=== PATIENT | male | born 1980 | race Caucasian/White ===

== ENCOUNTER 2016-05-31 20:35 | Emergency (ER) ==
[2016-05-31] MEDS ORDERED: ASPIRIN PO STA (20:59)
[2016-05-31 21:11] LABS: MANUAL DIFF NEEDED? NO
--- NOTE | 2016-05-31 21:33 | PROVIDER DOCUMENTATION ---
HPI-Chest Pain <Noah Russell - Last Filed: 05/31/16 22:27> - General Source: patient - History of Present Illness-CP Location: reports: substernal Chest Pain Radiation: reports: shoulders (left) Quality of Pain: reports: aching Severity in ED: mild Onset/Duration: 1-3 hours ago Timing: intermittent Context/Activities at Onset: reports: none Modifying Factors: worse with: breathing, coughing Associated Symptoms: reports: denies symptoms Nitro Today/Relief: no nitro taken today Aspirin Treatment Today: 325 mg x 1, provided by ED Similar Symptoms Previously?: No Recently Seen Here or By Another Healthcare Provider: No <Divya Kinney - Last Filed: 05/31/16 22:43> - General Chief Complaint: Epigastric Pain Stated Complaint: CHEST PAIN Time Seen by Provider: 05/31/16 21:15 Allergies/Adverse Reactions: Patient Allergies Allergy/AdvReac Type Severity Reaction Status Date / Time No Known Allergies Allergy Verified 05/31/16 20:59 Home Medications: Home Medication List Medication Instructions Recorded Confirmed Last Taken Type Acetaminophen [Tylenol Extra 1,000 mg PO ONCE 05/31/16 05/31/16 05/31/16 12:00 History Strength] Hydrocodone/APAP 5 mg/325 mg 1 tab PO Q6H PRN PRN #10 tablet 05/31/16 Unknown Rx [Rutherford-5] Lansoprazole [Prevacid] 30 mg PO DAILY #21 capsule. 05/31/16 Unknown Rx - History of Present Illness-CP Nature of Presenting Problem: 36 year old M presents to the ED with a cc of chest pain with an onset of 2030. Pt states that pain is worse with coughing and deep breaths. PT states that pain is intermittent. Denies SOB, nausea, vomiting, or diarrhea. (Divya Kinney) Review of Systems - Adult - REVIEW OF SYSTEMS - ADULT Constitutional: denies: chills, fever Eyes: reports: no symptoms reported Ears, Nose, Mouth & Throat: denies: ear pain, throat pain Cardiovascular: reports: chest pain. denies: palpitations Respiratory: reports: cough. denies: shortness of breath Gastrointestinal: denies: abdominal pain, diarrhea, nausea, vomiting Genitourinary: denies: dysuria, hematuria Musculoskeletal: denies: back pain, muscle weakness Integumentary: denies: rash, skin sores/ulcer, skin thickening Neurological: reports: no symptoms reported Psychiatric: reports: no symptoms reported Endocrine: reports: no symptoms reported Hematologic/Lymphatic: reports: no symptoms reported Allergic/Immunologic: reports: no symptoms reported All Other Systems: Reviewed and Negative <Divya Kinney - Last Filed: 05/31/16 22:43> Past History - Adult - PAST MEDICAL HISTORY-ADULT Review of Records: reports: Nursing Assessment Review, Medications Reviewed Major Childhood Illnesses: reports: denies history Cardiovascular: reports: denies history Respiratory: reports: denies history Gastrointestinal: reports: GERD, ulcer Obstetrical/Gynecological: reports: denies history Genitourinary: reports: denies history Musculoskeletal: reports: denies history Neurological: reports: denies history Endocrine/Immune: reports: denies history Other Conditions: reports: denies history - PRIOR SURGERIES/PROCEDURES Surgical/Procedure History: reports: none - IMMUNIZATION STATUS Childhood Immunizations: See Nurse Assessment Flu Vaccine: See Nurse Assessment - FAMILY HISTORY Family History: CAD under 55yo - SOCIAL HISTORY Smoking: cigarettes, less than 1 pack/day Provider spent 3-5 mins advising pt. on dangers of tobacco.: Discussed manners to quit use, and f/u contacts for add'l counseling. Substance Use: none/never Alcohol Use Frequency: twice a week Number of drinks per typical drinking period:: 11-15 drinks <Divya Kinney - Last Filed: 05/31/16 22:43> Physical Exam-General - PHYSICAL EXAM-ADULT Initial Vital Signs Reviewed: Yes - CONSTITUTIONAL General Appearance: appears well, alert, no apparent distress - EYES Eyes: PERRL/EOMI, pink conjunctivae - HEAD, EARS, NOSE, MOUTH & THROAT HENMT: normocephalic/atraumatic, moist mucous membranes - NECK Neck: supple - RESPIRATORY Respiratory: chest non-tender, lungs clear, normal breath sounds - CARDIOVASCULAR Cardiovascular: normal peripheral pulses, regular rate, rhythm, no edema - GASTROINTESTINAL (ABDOMEN) Abdominal Exam: normal bowel sounds, non tender, soft - MUSCULOSKELETAL Back Exam: normal inspection, no vertebral tenderness Extremity: normal inspection - SKIN Integumentary: normal color, normal turgor, warm/dry - PSYCHIATRIC Psych/Mental Status: normal mood/affect, normal thought content, normal thought process, oriented x 3 <Divya Kinney - Last Filed: 05/31/16 22:43> Progress <Noah Russell - Last Filed: 05/31/16 22:27> - EKG 1 Time of EKG reading by physician:: 20:44 EKG Read and Signed by:: Noah Russell EKG Interpretation (*Must complete 3 of following elements*): Abnormal Rate: 75 Rhythm: NSR QRS: RBB (incomplete) - XRAY 1 XRAY Study: Chest Impression: Normal XRAY Interpretation: negative: Dr. Russell-ER MD <Divya Kinney - Last Filed: 05/31/16 22:43> - PLAN OF CARE/RESULTS Progress/Plan/Lab Results: plan of care: imaging, labs, medications, EKG Orders Category Date Time Status Cardiac Monitoring DIRECTED Care 05/31/16 21:00 Active Oxygen Therapy- ED Nursing DIRECTED Care 05/31/16 21:00 Active Saline Loc NOW Care 05/31/16 21:00 Active CHEST-2 VIEWS [RAD] Stat Exams 05/31/16 21:00 Taken CBC WITH ELECTRONIC DIFF [HEME] Stat Lab 05/31/16 20:55 Completed CK PROFILE [SP CHEM] Stat Lab 05/31/16 20:55 Completed COMPREHENSIVE METABOLIC PANEL [CHEM] Stat Lab 05/31/16 20:55 Completed D-DIMER PL [COAG] Stat Lab 05/31/16 20:55 Results LIPASE [CHEM] Stat Lab 05/31/16 20:55 Completed MAGNESIUM [CHEM] Stat Lab 05/31/16 20:55 Completed PRO B-NATRIURETIC PEPTIDE Stat Lab 05/31/16 20:55 Completed [address]IME WITH INR PL [COAG] Stat Lab 05/31/16 20:[address] [COAG] Stat Lab 05/31/16 20:55 Results TROPONIN T Stat Lab 05/31/16 20:55 Completed Aspirin Med 05/31/16 20:59 Discontinued 325 mg PO STAT STA Dexamethasone [Decadron] Med 05/31/16 22:13 Discontinued 4 mg IV NOW ONE EKG [EKG] Stat Ther 05/31/16 20:43 Ordered Laboratory Tests 05/31/16 05/31/16 05/31/16 20:55 20:55 20:55 WBC RBC Hgb Hct MCV MCH MCHC RDW Std Deviation Plt Count MPV Immature Gran % (Auto) Neut % (Auto) Lymph % (Auto) [place] % (Auto) Eos % (Auto) Baso % (Auto) Immature Gran # (Auto) Neut # (Auto) Lymph # (Auto) [place] # (Auto) Eos # (Auto) Baso # (Auto) PT INR APTT (Factor Assay) Sodium 136 Potassium 4.0 Chloride 99 Carbon Dioxide 24 L Anion Gap 13 BUN 19 Creatinine 0.8 BUN/Creatinine Ratio 24 Glucose 115 H Calculated Osmolality 275 Calcium 9.5 Magnesium 2.0 Total Bilirubin 0.20 AST 30 ALT 38 Alkaline Phosphatase 98 Creatine Kinase 168 Troponin T < 0.010 Itw-V-Ozxjqamooqo Pept 5 Total Protein 7.4 Albumin 4.3 Globulin 3.0 Albumin/Globulin Ratio 1.0 Lipase 05/31/16 05/31/16 05/31/16 20:55 20:55 20:55 WBC 10.74 RBC 5.19 Hgb 16.0 Hct 44.7 MCV 86.1 MCH 30.8 MCHC 35.8 RDW Std Deviation 12.4 Plt Count 320 MPV 10.1 Immature Gran % (Auto) 0.3 Neut % (Auto) 53.7 Lymph % (Auto) 31.0 [place] % (Auto) 10.4 H Eos % (Auto) 4.2 Baso % (Auto) 0.4 Immature Gran # (Auto) 0.03 Neut # (Auto) 5.77 Lymph # (Auto) 3.33 [place] # (Auto) 1.12 H Eos # (Auto) 0.45 Baso # (Auto) 0.04 PT 13.1 INR 0.96 APTT (Factor Assay) 37.1 Sodium Potassium Chloride Carbon Dioxide Anion Gap BUN Creatinine BUN/Creatinine Ratio Glucose Calculated Osmolality Calcium Magnesium Total Bilirubin AST ALT Alkaline Phosphatase Creatine Kinase Troponin T Svz-I-Rbonhammnac Pept Total Protein Albumin Globulin Albumin/Globulin Ratio Lipase 35 Vital Signs - 24 hr 05/31/16 05/31/16 05/31/16 20:39 21:04 21:32 Temperature 98 F Pulse Rate 81 75 75 Respiratory 18 22 20 Rate Blood Pressure 166/85 130/87 129/83 O2 Sat by Pulse 97 95 97 Oximetry 05/31/16 22:30 Temperature Pulse Rate 87 Respiratory 17 Rate Blood Pressure 132/68 O2 Sat by Pulse 95 Oximetry Pt given results and will be d/c home w/ rx to follow up with PCP. Pt verbally understood instructions. PT remained clinically stable throughout the course of the ED stay and will return if symptoms worsen. (Divya Kinney) Departure - Departure Time of Disposition Order: 22:15 Certified Medical Emergency: Emergent <Noah Russell - Last Filed: 05/31/16 22:27> <Divya Kinney - Last Filed: 05/31/16 22:43> - Departure DIAGNOSIS: Pleuritic chest pain, Epigastric abdominal pain Disposition: HOME 01 Condition: Stable Additional Instructions: stop smoking, followup with your primary care provider this week for further evaluation Prescriptions: Hydrocodone/APAP 5 mg/325 mg [Rutherford-5] 1 tab PO Q6H PRN PRN #10 tablet PRN Reason: Pain Lansoprazole [Prevacid] 30 mg PO DAILY #21 capsule.dr Referrals: Gorge Talamantes MD [STAFF PHYSICIAN] - Forms: Return to School/Parent Work Instructions: Acetaminophen; Hydrocodone tablets or capsules, Abdominal Pain, Adult, [id number], Nonspecific Chest Pain, Ajtu-xk-Pmuc, Lansoprazole capsules Attestation - Scribe Verification/Attestation Scribe:: Divya Kinney Acting as Scribe for:: Noah Russell Scribe documention review:: This chart was documented by a scribe and accurately reflects the service the provider performed and the decisions made by the provider. <Divya Kinney - Last Filed: 05/31/16 22:43> Physician Attestation - Physician Attestation I, the provider, attest to the following statement:: Noah Russell Physician documentation Attestation:: This documentation recorded by the scribe accurately reflects the service I personally performed and the decisions made by me. <Divya Kinney - Last Filed: 05/31/16 22:43>
[2016-05-31 21:36] LABS: BASO% 0.4 % (0.0-0.8); EOS# 0.45 X1000 (0.0-0.7); EOS% 4.2 % (0.0-10.0); HEMATOCRIT 44.7 % (42.0-52.0); IMM GRAN# 0.03 X1000 (0.0-0.04); IMM GRAN% 0.3 % (0.0-0.5); LYMPH# 3.33 X1000 (1.2-3.4); MCH 30.8 PG (27-31); MCHC 35.8 g/dL (33-37); MCV 86.1 FL (81-99); MONO# 1.12 X1000 (0.11-0.59); MONO% 10.4 % (1.7-9.3); MPV 10.1 FL (7.4-10.4); NEUT% 53.7 % (42.2-75.2); PLT 320 X1000 (130-400); RBC 5.19 XMIL (4.7-6.1)
[2016-05-31 22:06] LABS: AGAP 13; BUN 19 mg/dL (8-22); CHLORIDE 99 mmol/L (98-107); COSMO 275; SODIUM 136 mmol/L (136-145); TCO2 24 mmol/L (25-35)
[2016-05-31 22:07] LABS: ALBUMIN 4.3 g/dL (3.5-5.0); ALKALINE PHOSPHATASE 98 U/L (32-122); CALCIUM 9.5 mg/dL (8.8-10.2); TOTAL PROTEIN 7.4 g/dL (6.3-8.3)
[2016-05-31 22:08] LABS: GOT 30 U/L (10-34); GPT 38 U/L (10-44)
[2016-05-31] MEDS ORDERED: DECADRON IV ONE (22:13)
[2016-05-31 22:26] LABS: CK PROFILE 168 U/L (24-204)
[2016-05-31 22:31] VITALS: BP 132/68
[2016-05-31 22:38] LABS: INR 0.96 (0.86-1.15); PROTIME 13.1 Seconds (12.1-15.5); PTT PL 37.1 Seconds (22.6-43.9)
--- NOTE | 2016-06-01 05:07 | EKG Report ---
Test Performed on : 05/31/2016 8:44:13 PM Test Reason : chest/epigastric discomfort Blood Pressure : / mmHG Vent. Rate : 075 BPM Atrial Rate : 075 BPM P-R Int : 142 ms QRS Dur : 104 ms QT Int : 370 ms P-R-T Axes : 048 063 049 degrees QTc Int : 413 ms Normal sinus rhythm. Incomplete right bundle branch block Borderline ECG When compared with ECG of 25-SEP-2014 10:43, Incomplete right bundle branch block is now present Unconfirmed Result
--- NOTE | 2016-06-01 08:51 | Diag Imaging Result Document ---
PROCEDURE NAME: CHEST-2 VIEWS - 05/31/2016 FRONTAL AND LATERAL CHEST, TWO VIEWS: COMPARISON: No comparison films. FINDINGS: The lungs are well expanded. The heart is not enlarged. The vessels are not distended. No pneumonia. No pleural effusions. No free air beneath the diaphragm. IMPRESSION: No acute abnormality.
== END 2016-05-31 23:06 | disposition home or self-care (01) ==
LOC: P.ED 20:35
DX: R07.81 Pleurodynia (principal); R10.13 Epigastric pain; R05 Cough; R94.31 Abnormal electrocardiogram [ECG] [EKG]; F17.210 Nicotine dependence, cigarettes, uncomplicated; Z71.6 Tobacco abuse counseling; Z79.82 Long term (current) use of aspirin; Z82.49 Family history of ischemic heart disease and other diseases of the circulatory system
CPT/HCPCS: 71020; 80053; 82550; 83690; 83735; 83880; 84484; 85025; 85379; 85610; 85730; 93005; 96374; J1100

== ENCOUNTER 2019-07-17 19:32 | Observation (INO) ==
[2019-07-17] MEDS ORDERED: ASPIRIN EC ONE ×2 (19:34→19:36)
[2019-07-17] MEDS ORDERED: G.I. COCKTAIL PO ONE (19:43)
[2019-07-17] MEDS ORDERED: SODIUM CHLORIDE 0.9% INJ ONE (19:43)
[2019-07-17] MEDS ORDERED: PEPCID IV ONE (19:43)
[2019-07-17] MEDS ORDERED: ASPIRIN PO ONE (19:43)
[2019-07-17 20:03] LABS: BASO# 0.02 X1000 (0.0-0.2); BASO% 0.2 % (0.0-0.8); EOS# 0.39 X1000 (0.0-0.7); EOS% 3.2 % (0.0-10.0); HEMATOCRIT 51.5 % (42.0-52.0); HEMOGLOBIN 17.5 g/dL (14.0-18.0); IMM GRAN# 0.04 X1000 (0.0-0.04); IMM GRAN% 0.3 % (0.0-0.5); LYMPH% 25.9 % (20.5-51.1); MCH 30.8 PG (27-31); MCV 90.5 FL (81-99); MONO# 0.92 X1000 (0.11-0.59); MONO% 7.4 % (1.7-9.3); MPV 10.4 FL (7.4-10.4); NEUT# 7.78 X1000 (1.4-6.5); PLT 308 X1000 (130-400); RBC 5.69 XMIL (4.7-6.1); RDW 13.4 % (11.5-14.5); WBC 12.35 X1000 (4.8-10.8)
[2019-07-17 20:07] LABS: AGAP 15; BUN 10 mg/dL (8-22); CHLORIDE 98 mmol/L (98-107); COSMO 273; CREATININE 0.8 mg/dL (0.7-1.2); ESTIMATED GFR > 60; GLUCOSE 97 mg/dL (70-104); POTASSIUM 3.9 mmol/L (3.5-5.1); SODIUM 137 mmol/L (136-145); TCO2 25 mmol/L (25-35)
[2019-07-17 21:07] LABS: URINE SOURCE CLEAN CATCH
[2019-07-17 21:08] LABS: BILIRUBIN URINE NEGATIVE (NEGATIVE); BLOOD URINE NEGATIVE (NEGATIVE); COLOR YELLOW; GLUCOSE URINE NEGATIVE (NEGATIVE); KETONE URINE NEGATIVE (NEGATIVE); LEUKOCYTES URINE TRACE (NEGATIVE); NITRITE URINE NEGATIVE (NEGATIVE); PROTEIN URINE TRACE mg/dL (NEGATIVE); SP GRAVITY URINE 1.023; TURBIDITY URINE HAZY (CLEAR); UROBILINOGEN URINE NORMAL (NORMAL)
--- NOTE | 2019-07-17 21:18 | Diag Imaging Result Doc PS360 ---
CHEST-PORTABLE - 07/17/2019 INDICATION: CP COMPARISON: 10/02/2018 FINDINGS: The lungs are normally expanded and clear. Heart size and mediastinal contours are normal. No pneumothorax or pleural effusion. IMPRESSION: Negative exam. Electronically signed by Chico De La Fuente 07/17/2019 9:15 PM
[2019-07-17 21:20] LABS: UR AMPHETAMINES QUAL NONE DETECTED (NONE DETECT); UR BARBITUATES QUAL NONE DETECTED (NONE DETECT); UR BENZODIAZEPIN QUAL NONE DETECTED (NONE DETECT); UR CANNABINOIDS QUAL NONE DETECTED (NONE DETECT); UR COCAINE QUAL NONE DETECTED (NONE DETECT); UR METHADONE QUAL NONE DETECTED (NONE DETECT); UR METHAMPHETAMINE QUAL NONE DETECTED (NONE DETECT); UR OPIATES QUAL NONE DETECTED (NONE DETECT); UR OXYCODONE QUAL PRESUMPTIVE POSITIVE (NONE DETECT); UR PCP QUAL NONE DETECTED (NONE DETECT); UR PROPOXYPHENE QUAL NONE DETECTED (NONE DETECT); UR TCA QUAL NONE DETECTED (NONE DETECT)
[2019-07-17 21:40] LABS: UR EPITHELIAL CELLS <10 /HPF (<10); URINE BACTERIA NEGATIVE /HPF; URINE RBC <10 /HPF (<10); URINE WBC <10 /HPF (<10)
[2019-07-17 21:41] LABS: URINE CASTS NONE SEEN; URINE CRYSTALS NONE SEEN; URINE SMALL ROUND CELLS NONE SEEN; URINE YEAST NONE SEEN
[2019-07-17] MEDS ORDERED: TYLENOL PO PRN ×2 (21:47→23:22)
[2019-07-17] MEDS ORDERED: ZOFRAN IV PRN (21:47)
--- NOTE | 2019-07-17 21:57 | PROVIDER DOCUMENTATION ---
This chart was entered by Nereida Jean Scribe, acting as scribe for Jason Fernández MD. HPI-Chest Pain - General Chief Complaint: Chest Pain Stated Complaint: CHEST PAIN Time Seen by Provider: 07/17/19 19:38 Source: patient Allergies/Adverse Reactions: Patient Allergies Allergy/AdvReac Type Severity Reaction Status Date / Time No Known Allergies Allergy Verified 07/17/19 19:47 Home Medications: Home Medication List Medication Instructions Recorded Confirmed Last Taken Type NK [No Home Medications] 07/17/19 07/17/19 Unknown History - History of Present Illness-CP Nature of Presenting Problem: pt is a 39 yr old male presenting with 2 day complaint of central chest pain, pain 7/10 and radiates to left chest. pt denies any injury, worse with exertion. no other complaints Location: reports: central Chest Pain Radiation: reports: other (left chest) Quality of Pain: reports: aching Severity in ED: moderate (7/10) Onset/Duration: 2 days ago Timing: still present Context/Activities at Onset: reports: light activity Modifying Factors: improves with: exercise (worsens pain) Associated Symptoms: denies: diaphoresis, fever/chills, nausea, shortness of breath, vomiting Nitro Today/Relief: no nitro taken today Aspirin Treatment Today: 325 mg x 1, provided by ED Prior Chest Pain/Cardiac Workup: reports: no prior chest pain, no prior cardiac workup Similar Symptoms Previously?: No Recently Seen Here or By Another Healthcare Provider: No Review of Systems - Adult - REVIEW OF SYSTEMS - ADULT Constitutional: denies: chills, fever Eyes: reports: no symptoms reported Ears, Nose, Mouth & Throat: reports: no symptoms reported Cardiovascular: reports: chest pain. denies: palpitations, syncope Respiratory: denies: cough, shortness of breath, wheezing Gastrointestinal: denies: abdominal pain, diarrhea, nausea, vomiting Genitourinary: reports: no symptoms reported Musculoskeletal: denies: back pain, neck pain Integumentary: reports: no symptoms reported Neurological: denies: dizziness/vertigo, headache/migraines, syncope Psychiatric: reports: no symptoms reported Endocrine: reports: no symptoms reported Hematologic/Lymphatic: reports: no symptoms reported Allergic/Immunologic: reports: no symptoms reported All Other Systems: Reviewed and Negative Past History - Adult - PAST MEDICAL HISTORY-ADULT Review of Records: reports: Old Records Reviewed, Nursing Assessment Review, Medications Reviewed, Social history reviewed & non-contributory. Major Childhood Illnesses: reports: denies history Cardiovascular: reports: denies history Respiratory: reports: denies history Gastrointestinal: reports: GERD, ulcer Obstetrical/Gynecological: reports: denies history Genitourinary: reports: denies history Musculoskeletal: reports: orthopedic injury Neurological: reports: denies history Endocrine/Immune: reports: denies history Other Conditions: reports: denies history - PRIOR SURGERIES/PROCEDURES Surgical/Procedure History: reports: reviewed, not pertinent, orthopedic (extremity) (R leg) - IMMUNIZATION STATUS Childhood Immunizations: See Nurse Assessment Flu Vaccine: See Nurse Assessment - FAMILY HISTORY Family History: reviewed, not pertinent, CAD under 55yo - SOCIAL HISTORY Smoking: cigarettes Provider spent 3-5 mins advising pt. on dangers of tobacco.: Discussed manners to quit use, and f/u contacts for add'l counseling. Substance Use: denies Living Situation: family Physical Exam-General - PHYSICAL EXAM-ADULT Initial Vital Signs Reviewed: Yes - CONSTITUTIONAL General Appearance: alert, no apparent distress - EYES Eyes: PERRL/EOMI - HEAD, EARS, NOSE, MOUTH & THROAT HENMT: normocephalic/atraumatic, moist mucous membranes - NECK Neck: non-tender, full range of motion, supple, normal inspection - RESPIRATORY Respiratory: lungs clear, normal breath sounds - CARDIOVASCULAR Cardiovascular: normal peripheral pulses, regular rate, rhythm - GASTROINTESTINAL (ABDOMEN) Abdominal Exam: non tender, soft - LYMPHATIC Lymphatic: no adenopathy - MUSCULOSKELETAL Back Exam: normal inspection Extremity: normal range of motion, non-tender, normal gait, normal inspection - SKIN Integumentary: normal color, normal turgor, warm/dry - NEUROLOGIC Neurologic: grossly normal, no motor/sensory deficits - PSYCHIATRIC Psych/Mental Status: normal mood/affect - HEART Score HEART Score: History: Moderately Suspicious HEART Score: ECG: Non-Specific Repolarization Disturbance/LBBB/PM HEART Score: Age: < or = 45 Years HEART Score: Risk Factors for Atherosclerotic Disease: No Risk Factors Known HEART Score: Troponin: < or = Normal Limit Total HEART Score:: 2 Progress - PLAN OF CARE/RESULTS Progress/Plan/Lab Results: Vital Signs - 8 hr 07/17/19 19:35 07/17/19 21:00 Temperature 98.2 F Pulse Rate 67 70 Respiratory Rate 18 20 Blood Pressure 140/80 130/72 O2 Sat by Pulse Oximetry 97 95 Laboratory Results - last 24 hr 07/17/19 07/17/19 07/17/19 19:42 19:42 19:42 WBC 12.35 H RBC 5.69 Hgb 17.5 Hct 51.5 MCV 90.5 MCH 30.8 MCHC 34.0 RDW Std Deviation 13.4 Plt Count 308 MPV 10.4 Immature Gran % (Auto) 0.3 Neut % (Auto) 63.0 Lymph % (Auto) 25.9 [place] % (Auto) 7.4 Eos % (Auto) 3.2 Baso % (Auto) 0.2 Immature Gran # (Auto) 0.04 Neut # (Auto) 7.78 H Lymph # (Auto) 3.20 [place] # (Auto) 0.92 H Eos # (Auto) 0.39 Baso # (Auto) 0.02 Sodium 137 Potassium 3.9 Chloride 98 Carbon Dioxide 25 Anion Gap 15 BUN 10 Creatinine 0.8 Estimated GFR/1.73 m2 > 60 BUN/Creatinine Ratio 13 Glucose 97 Calculated Osmolality 273 Calcium 10.0 Troponin T High Sens 8 Urine Source Urine Color Urine Turbidity Urine pH Ur Specific [place] Urine Protein Ur Glucose (Stick) Ur Ketones (Stick) Urine Blood Urine Nitrite Urine Bilirubin Urobilinogen Dipstick Urine Leukocytes Urine WBC (Auto) Urine RBC (Auto) U Epithel Cells (Auto) Urine Bacteria (Auto) Urine Opiates Screen Ur Oxycodone Screen Urine Methadone Screen U Propoxyphene Qual Ur Barbituates Screen Ur Tricyclics Screen Ur Phencyclidine Scrn Ur Amphetamines Screen U Methamphetamines Scrn U Benzodiazepines Scrn Urine Cocaine Screen U Cannabinoids Screen 07/17/19 07/17/19 20:21 20:21 WBC RBC Hgb Hct MCV MCH MCHC RDW Std Deviation Plt Count MPV Immature Gran % (Auto) Neut % (Auto) Lymph % (Auto) [place] % (Auto) Eos % (Auto) Baso % (Auto) Immature Gran # (Auto) Neut # (Auto) Lymph # (Auto) [place] # (Auto) Eos # (Auto) Baso # (Auto) Sodium Potassium Chloride Carbon Dioxide Anion Gap BUN Creatinine Estimated GFR/1.73 m2 BUN/Creatinine Ratio Glucose Calculated Osmolality Calcium Troponin T High Sens Urine Source CLEAN CATCH Urine Color YELLOW Urine Turbidity HAZY Urine pH 6.0 Ur Specific [place] 1.023 Urine Protein TRACE A Ur Glucose (Stick) NEGATIVE Ur Ketones (Stick) NEGATIVE Urine Blood NEGATIVE Urine Nitrite NEGATIVE Urine Bilirubin NEGATIVE Urobilinogen Dipstick NORMAL Urine Leukocytes TRACE A Urine WBC (Auto) <10 Urine RBC (Auto) <10 U Epithel Cells (Auto) <10 Urine Bacteria (Auto) NEGATIVE Urine Opiates Screen NONE DETECTED Ur Oxycodone Screen PRESUMPTIVE POSITIVE A Urine Methadone Screen NONE DETECTED U Propoxyphene Qual NONE DETECTED Ur Barbituates Screen NONE DETECTED Ur Tricyclics Screen NONE DETECTED Ur Phencyclidine Scrn NONE DETECTED Ur Amphetamines Screen NONE DETECTED U Methamphetamines Scrn NONE DETECTED U Benzodiazepines Scrn NONE DETECTED Urine Cocaine Screen NONE DETECTED U Cannabinoids Screen NONE DETECTED Orders Category Date Time Status Cardiac Monitoring DIRECTED Care 07/17/19 19:42 Active Saline Loc NOW Care 07/17/19 19:42 Active CHEST-PORTABLE [RAD] Stat Exams 07/17/19 19:43 Completed BASIC METABOLIC PANEL [CHEM] Stat Lab 07/17/19 19:42 Completed CBC WITH ELECTRONIC DIFF [HEME] Stat Lab 07/17/19 19:42 Completed TROPONIN T HIGH SENSITIVITY Stat Lab 07/17/19 19:42 Completed URINALYSIS W/POSS RFLX CULT [URINALYSIS] Stat Lab 07/17/19 20:[address]UG SCREEN [address] Stat Lab 07/17/19 20:21 Completed URINE MANUAL MICROSCOPIC [URINALYSIS] Stat Lab 07/17/19 20:21 Results Aspirin Med 07/17/19 19:43 Discontinued 325 mg PO NOW ONE Aspirin EC Med 07/17/19 19:34 Discontinued 243 mg .ROUTE .STK-MED ONE Aspirin EC Med 07/17/19 19:36 Discontinued 325 mg .ROUTE .STK-MED ONE Famotidine [Pepcid] Med 07/17/19 19:43 Discontinued 20 mg IV NOW ONE Lido/Nova Alk/Al&mg Hydrox [G.i. Cocktail] Med 07/17/19 19:43 Discontinued 30 ml PO NOW ONE Sodium Chloride 0.9% Med 07/17/19 19:43 Discontinued 5 - 10 ml INJ NOW ONE EKG [EKG] Stat Ther 07/17/19 19:42 Ordered EKG [EKG] Stat Ther 07/17/19 21:14 Ordered Result Diagrams: 07/17/19 19:42 07/17/19 19:42 - REASSESSMENT Reassessment #1 Time Reassessed: 21:56 Status: improving (CP BETTER. NOTE MILD HYPOXEMIA (94), MILD VIKA-HILAR INFILTRATES TO MY READING OF CXR. WILL START COVID-19 TESTING.) - EKG 1 Time of EKG reading by physician:: 19:44 EKG Read and Signed by:: Jason Fernández EKG Interpretation (*Must complete 3 of following elements*): Abnormal (nonspecific t wave abnormality) Rate: 67 Rhythm: nsr [place]: normal QRS: RBB (incomplete RBBB) - CONSULTS/PCP/HOSPITALIST Notification #1 *Consult/PCP/Hospitalist*: DR GRAYSON Time Discussed: 21:27 Consult Disposition: Admit Departure - Departure Date of Disposition Decision: 07/17/19 Time of Disposition Decision: 21:51 DIAGNOSIS: Abnormal EKG Chest pain Qualifiers: Chest pain type: unspecified Qualified Code(s): R07.9 - Chest pain, unspecified Leukocytosis Qualifiers: Leukocytosis type: unspecified Qualified Code(s): D72.829 - Elevated white blood cell count, unspecified Disposition: ADMITTED INPATIENT 09 Certified Medical Emergency: Emergent Condition: Stable Referrals and Follow-Ups: None,PCP [Primary Care Provider] - - Critical Care Note This patient required my direct & personal management of CC.: No Attestation - Physician/ GWEN Attestation The physician spent face to face time with patient:: Yes Advanced Practice Provider documentation review:: Supervising physician onsite and consulted in the evaluation and care of this patient. The physician did have a face to face encounter with the patient. This chart was documented by the indicated scribe, (Nereida Jean Scribe) and accurately reflects the services I performed and decisions made by me, Jason Fernández MD, as attested by the provider's signature.
[2019-07-17] MEDS ORDERED: TORADOL IV PRN (23:22)
[2019-07-17] MEDS ORDERED: ZOFRAN ODT PO PRN (23:26)
[2019-07-17] MEDS ORDERED: MORPHINE IV PRN (23:26)
--- NOTE | 2019-07-18 02:25 | EKG Report ---
Test Performed on : 07/17/2019 9:25:06 PM Test Reason : #2 Blood Pressure : / mmHG Vent. Rate : 073 BPM Atrial Rate : 073 BPM P-R Int : 146 ms QRS Dur : 102 ms QT Int : 362 ms P-R-T Axes : 044 065 042 degrees QTc Int : 398 ms Normal sinus rhythm. Incomplete right bundle branch block Nonspecific T wave abnormality Abnormal ECG When compared with ECG of 31-MAY-2016 20:44, No significant change was found Unconfirmed Result
--- NOTE | 2019-07-18 02:26 | EKG Report ---
Test Performed on : 07/17/2019 10:51:00 PM Test Reason : CP Blood Pressure : / mmHG Vent. Rate : 071 BPM Atrial Rate : 071 BPM P-R Int : 146 ms QRS Dur : 104 ms QT Int : 356 ms P-R-T Axes : 040 061 024 degrees QTc Int : 386 ms Normal sinus rhythm. Incomplete right bundle branch block Nonspecific T wave abnormality Abnormal ECG When compared with ECG of 17-JUL-2019 21:25, (Unconfirmed) No significant change was found Unconfirmed Result
[2019-07-18] MEDS ORDERED: PRILOSEC PO SCH (07:00)
--- NOTE | 2019-07-18 08:49 | EKG Report ---
Test Performed on : 07/17/2019 7:36:47 PM Test Reason : abnl ekg Blood Pressure : / mmHG Vent. Rate : 067 BPM Atrial Rate : 067 BPM P-R Int : 140 ms QRS Dur : 100 ms QT Int : 354 ms P-R-T Axes : 056 079 033 degrees QTc Int : 374 ms Normal sinus rhythm. Incomplete right bundle branch block Nonspecific T wave abnormality Abnormal ECG No previous ECGs available Unconfirmed Result
[2019-07-18] MEDS ORDERED: ASPIRIN PO SCH (09:00)
[2019-07-18 11:08] VITALS: BP 130/68
--- NOTE | 2019-07-18 12:23 | EKG Report ---
Test Performed on : 07/18/2019 03:17:32 AM Test Reason : CP Blood Pressure : / mmHG Vent. Rate : 069 BPM Atrial Rate : 069 BPM P-R Int : 144 ms QRS Dur : 102 ms QT Int : 350 ms P-R-T Axes : 050 077 006 degrees QTc Int : 375 ms Normal sinus rhythm. Incomplete right bundle branch block Nonspecific T wave abnormality Abnormal ECG When compared with ECG of 17-JUL-2019 22:51, (Unconfirmed) No significant change was found Unconfirmed Result
--- NOTE | 2019-07-18 22:27 | HISTORY AND PHYSICAL ---
CHIEF COMPLAINT: Chest pain. HISTORY OF PRESENT ILLNESS: Patient is a 39-year-old male who presented to the hospital with a 2- day history of central chest pain, stated initially it was 7/10, feels as though it is radiating to his left chest. States it is worse with exertion. Positive nausea. No diaphoresis. ALLERGIES: No known drug allergies. MEDICATIONS: None. REVIEW OF SYSTEMS: As noted above. Notes that exercise seems to worsen his pain. He has had no previous chest pain. No previous cardiac workup. States the pain was at its most intense was 7/10. Currently, pain is much improved. Denies any nausea, vomiting, palpitations, denies syncope, shortness of breath, cough, congestion, wheezing. Denies diarrhea, dysuria, urinary frequency, constipation, melena, hematochezia. PAST MEDICAL HISTORY: Significant for peptic ulcer disease, chronic reflux, history of orthopedic injury. FAMILY HISTORY: No coronary artery disease below the age of 55. SOCIAL HISTORY: Patient does continues to smoke. Denies alcohol or illicit substances. We did discuss with the patient the perils of smoking. PHYSICAL EXAMINATION: VITAL SIGNS: Temperature 98 degrees, pulse 67, respiratory rate 18, BP 140/80, saturation 97% on room air. GENERAL: Patient is awake, pleasant in no distress. HEENT: Normocephalic. NECK: Supple. CARDIOVASCULAR: Regular rate. No murmurs. CHEST: Clear, nonlabored. No wheezing. ABDOMEN: Soft, nondistended, nontender. EXTREMITIES: Moves all extremities. NEUROLOGIC: No focal changes. SKIN: Warm, dry. No rashes. ASSESSMENT: 1. Chest pain likely more gastrointestinal related. 2. Left bundle branch block. 3. Mild leukocytosis. 4. Other. PLAN: We are going to admit patient to the hospital, rule out myocardial infarction, check echo and will follow. cc: Dave Grier MD
--- NOTE | 2019-07-18 22:28 | DISCHARGE SUMMARY ---
ADMISSION DATE: 07/17/2019 DISCHARGE DATE: 07/18/2019 DISCHARGE DIAGNOSES: 1. Chest pain, resolved. The patient notes that it appears more epigastric in nature now. 2. Chronic reflux. 3. Chronic tobacco abuse. CONSULTATIONS: None. PROCEDURES: None. BRIEF HOSPITAL COURSE: The patient was admitted to the hospital with chest pain radiating to his left chest area and had some nausea. Denied any diaphoresis. Thankfully, his echo was normal. His enzymes have all been normal. Labs have been normal. DISPOSITION: We are going to discharge patient home on PPI as he notes that the symptoms are much more epigastric in nature currently. Will continue to follow. If his symptoms worsen, he certainly needs to follow Cardiology for an outpatient stress test. Again, discussed with patient perils of smoking as well as reasons to stop. cc: Dave Grier MD
--- NOTE | 2019-07-19 00:25 | ECHO REPORT ---
ORDER DATE: 07/17/2019 MEASUREMENTS: Left ventricular internal diastole 4.9. Left ventricular internal diameter in systole 3.4. Septal thickness 1.3. Posterior wall thickness 1.2. Aortic root 3.5. Left atrium 4.1. SUMMARY: 1. Fair quality study. 2. Aortic valve is trileaflet and opens normally on 2 dimensional images. Peak gradient across aortic valve is less than 10 mmHg. Mitral, tricuspid, and pulmonic valves are without evidence of structural abnormality. There is trace tricuspid regurgitation. Aortic root is normal size. 3. Normal left ventricular chamber size with mild concentric left hypertrophy is suggested. The estimated left ventricular ejection fraction appears to be approximately 65%. No regional wall motion abnormalities evident. Left atrium is borderline enlarged. Right atrium and right ventricle are normal in size with grossly preserved right ventricular systolic function. 4. No pericardial effusion. 5. Appearance of inferior vena cava suggests normal central venous pressure. CONCLUSIONS: 1. No significant valvular abnormality evident. 2. Mild concentric left hypertrophy with estimated left ventricular ejection fraction approximately 65%. 3. Borderline left atrial enlargement. cc: Gideon Khalil MD
== END 2019-07-18 13:27 | disposition home or self-care (01) ==
LOC: P.ED 19:32 → P.MEDSURG 19:32 → SUATTDRO 22:40
PROVIDERS: ATTEND Family Medicine